=== PATIENT | female | born 1955 | race Caucasian/White ===

== ENCOUNTER → 2016-12-16 | Outpatient (CLI) | payer OTHER ==
[~2016-12-16] MED LIST: ADVAIR 250/501 DISK IH; ASCORBIC ACID500 M3 PO; B COMPLETE1 EACH PO; BUSPAR10 MG PO; CARBAMAZEPINE200 MG PO; CLARITIN10 M3 PO; CLONAZEPAM0.5 MG PO; CYMBALTA60 MG PO; DICYCLOMINE HCL10 MG PO; DITROPAN XL10 MG PO; FISH OIL 1,0001 EAC7 PO; FLAGYL500 MG PO; FLOVENT 11120 INHALA IH; FLUTICASONE PRO16 GM BOTH NARES; HYOPHEN TABLET1 EACH PO; HYOSCYAMINE0.375 M4 PO; LEVBID0.375 MG PO; LORATADINE10 M2 PO; LYRICA50 MG PO; MAGNESIUM250 MG PO; METRONIDAZOLE500 MG PO; MOBIC15 MG PO; OMEPRAZOLE20 M2 PO; POTASSIUM CHLO20 ME1 PO; PRILOSEC20 MG PO; PROAIR HFA8.5 GM IH; PriLOSEC PO; ROBAXIN750 MG PO; TEGRETOL200 MG PO; TESSALON PERLE100 MG PO; TIAZAC180 MG PO; TRAMADOL HCL50 MG PO; TRAZODONE HCL150 MG PO; TYLENOL ARTHRI650 MG PO; ULTRAM50 MG PO; VENTOLIN HFA18 GM IH; VESICARE10 MG PO; VITAMIN D31000 UNI2 PO; WELLBUTRIN XL150 MG PO; ZANAFLEX4 M1 PO; ZANAFLEX4 MG PO; ZANTAC300 MG PO
== END | disposition home or self-care (01) ==
LOC: CDC 11:45
DX: R94.31 Abnormal electrocardiogram [ECG] [EKG] (principal); K63.1 Perforation of intestine (nontraumatic)
CPT/HCPCS: 93000

== ENCOUNTER 2016-12-22 08:12 | Inpatient (IN) | payer OTHER ==
[~2016-12-22] VITALS: Ht 162.6 cm; Wt 88.5 kg
[2016-12-22 09:15] VITALS: BP 126/72
[2016-12-22 20:25] VITALS: BP 104/57
[2016-12-22 23:13] VITALS: BP 109/60
[2016-12-23 04:42] VITALS: BP 107/63
[2016-12-23 07:57] VITALS: BP 90/56
[2016-12-23 08:29] VITALS: BP 100/59
[2016-12-23 12:00] VITALS: BP 97/61
[2016-12-23 15:00] LABS: EOSINOPHIL (%) 1.4 % (0-5); EOSINOPHIL COUNT 0.1 K/uL (0-0.3); HEMATOCRIT 38.4 % (36.0-46.0); IMMATURE GRANULOCYTE (%) 0.2 % (0.0-0.7); INSTRUMENT ABS NEUTROPHIL CT 7.7 K/uL; LYMPHOCYTE COUNT 0.8 K/uL (1.0-2.8); MCH 29.3 PG (29.0-34.0); MCHC 31.8 G/DL (30.0-36.0); MCV 92.3 FL (83-99); MEAN PLAT.VOLUME 9.5 uM^3 (9.5-12.4); MONOCYTE (%) 5.7 % (3-12); MONOCYTE COUNT 0.5 K/uL (0-0.8); NEUTROPHIL (%) 83.5 % (45-76); NEUTROPHIL COUNT 7.7 K/uL (1.8-6.4); PLATELET COUNT 158 K/uL (156-360); RBC DIS.WIDTH-CV 12.6 % (11.8-14.6); RBC DIS.WIDTH-SD 42.5 % (39-53); RED BLOOD COUNT 4.16 M/uL (3.80-5.20)
[2016-12-23 15:12] LABS: ANION GAP 4 MEQ/L (2-14); CHLORIDE 103 MEQ/L (99-109); MAGNESIUM 1.7 mg/dl (1.3-2.7); POTASSIUM 3.9 MEQ/L (3.7-5.4); SAMPLE HEMOLYSIS CHECK 0; SAMPLE ICTERIC CHECK 0; SAMPLE LIPEMIA CHECK 0; SODIUM 139 MEQ/L (136-147); TOTAL BILIRUBIN 0.5 MG/DL (0.0-1.0)
[2016-12-23 15:16] LABS: WHITE BLOOD COUNT 9.3 K/uL (4.1-10.2)
[2016-12-23 15:18] LABS: ALKALINE PHOSPHATASE 64 IU/L (3-129); GFR ESTIMATE (CALCULATED) > 59 mL/min/; GLUCOSE 99 mg/dL (70-99); UREA NITROGEN (BUN) 5 mg/dL (9-23)
[2016-12-23 17:09] VITALS: BP 113/63
[2016-12-23 19:20] VITALS: BP 116/57
[2016-12-24] VITALS (7 sets, daily range): BP systolic 95–139; BP diastolic 51–81
[2016-12-24 12:04] LABS: ANION GAP 5 MEQ/L (2-14); CHLORIDE 101 MEQ/L (99-109); GFR ESTIMATE (CALCULATED) > 59 mL/min/; GLUCOSE 125 mg/dL (70-99); MAGNESIUM 1.7 mg/dl (1.3-2.7); POTASSIUM 3.8 MEQ/L (3.7-5.4); SAMPLE HEMOLYSIS CHECK 0; SAMPLE ICTERIC CHECK 0; SAMPLE LIPEMIA CHECK 0; SODIUM 136 MEQ/L (136-147); UREA NITROGEN (BUN) 6 mg/dL (9-23)
[2016-12-24 12:48] LABS: HEMATOCRIT 34.3 % (36.0-46.0); MCH 29.8 PG (29.0-34.0); MCHC 32.4 G/DL (30.0-36.0); MCV 92.2 FL (83-99); PLATELET COUNT 148 K/uL (156-360); RBC DIS.WIDTH-CV 12.5 % (11.8-14.6); RBC DIS.WIDTH-SD 42.5 % (39-53); RED BLOOD COUNT 3.72 M/uL (3.80-5.20); WHITE BLOOD COUNT 8.8 K/uL (4.1-10.2)
[2016-12-25 03:38] VITALS: BP 118/66
[2016-12-25 06:25] LABS: HEMATOCRIT 34.9 % (36.0-46.0); MCH 29.3 PG (29.0-34.0); MCHC 32.1 G/DL (30.0-36.0); MCV 91.4 FL (83-99); MEAN PLAT.VOLUME 9.6 uM^3 (9.5-12.4); PLATELET COUNT 157 K/uL (156-360); RBC DIS.WIDTH-CV 12.3 % (11.8-14.6); RBC DIS.WIDTH-SD 41.1 % (39-53); RED BLOOD COUNT 3.82 M/uL (3.80-5.20); WHITE BLOOD COUNT 8.1 K/uL (4.1-10.2)
[2016-12-25 07:03] VITALS: BP 114/69
[2016-12-25 09:41] LABS: CHLORIDE 102 mEq/L (99-109); POTASSIUM 4.1 mEq/L (3.7-5.4); SODIUM 137 mEq/L (136-147)
[2016-12-25 09:42] LABS: MAGNESIUM 1.9 mg/dL (1.3-2.7)
[2016-12-25 09:43] LABS: GLUCOSE 115 mg/dL (70-99)
[2016-12-25 09:45] LABS: ANION GAP 10 MEQ/L (2-14)
[2016-12-25 09:47] LABS: GFR ESTIMATE (CALCULATED) > 59 mL/min/
[2016-12-25 09:48] LABS: UREA NITROGEN (BUN) 5 mg/dL (9-23)
[2016-12-25 10:58] VITALS: BP 118/75
[2016-12-25 15:23] VITALS: BP 121/76
[2016-12-25 19:02] VITALS: BP 118/75
[2016-12-25 22:45] VITALS: BP 97/55
[2016-12-26] VITALS (7 sets, daily range): BP systolic 100–142; BP diastolic 7–86
[2016-12-27 03:21] VITALS: BP 103/64
[2016-12-27 09:02] VITALS: BP 11/68
[2016-12-27] MEDS ORDERED: ULTRAM50 MG PO (13:13)
== END 2016-12-27 16:01 | disposition home health service (06) | DRG 330 ==
LOC: 2SOUTH → 5EAST 08:27 → 2SOUTH 09:24 → 5EAST 20:23
PROVIDERS: Surgery
DX: Z43.3 Encounter for attention to colostomy (principal); K66.0 Peritoneal adhesions (postprocedural) (postinfection); K43.5 Parastomal hernia without obstruction or gangrene; J98.11 Atelectasis; R09.02 Hypoxemia; K21.9 Gastro-esophageal reflux disease without esophagitis; F31.9 Bipolar disorder, unspecified; F41.9 Anxiety disorder, unspecified; J45.909 Unspecified asthma, uncomplicated; R13.10 Dysphagia, unspecified; M79.7 Fibromyalgia; G62.9 Polyneuropathy, unspecified; K58.9 Irritable bowel syndrome, unspecified; M19.90 Unspecified osteoarthritis, unspecified site; E66.9 Obesity, unspecified; R32 Unspecified urinary incontinence; N81.10 Cystocele, unspecified; Z68.35 Body mass index [BMI] 35.0-35.9, adult; G47.33 Obstructive sleep apnea (adult) (pediatric); I10 Essential (primary) hypertension
CPT/HCPCS: 71010; 80048; 80053; 83735; 84100; 85025; 85027; 88302; 94640; 94640 76; 94660; 94667; 94668; 94760; 94799; 99202; C1781; J0131; J0330; J1100; J1170; J1580; J1650; J2175; J2250; J2405; J2710; J3010; J7120; S0030

== ENCOUNTER 2017-04-06 09:22 | Day surgery (SDC) | payer OTHER ==
[~2017-04-06] VITALS: Ht 157.5 cm; Wt 85.3 kg
[~2017-04-06 09:22] MED LIST changes: +ALLERGY RELIE15.8 ML BOTH NARES; +DESYREL 150 MG150 MG PO; +ZANAFLEX2 M1 PO
== END 2017-04-06 11:08 | disposition home or self-care (01) ==
LOC: PAIN 09:22 → SDC 10:30 → PAIN 11:08
DX: M50.123 Cervical disc disorder at C6-C7 level with radiculopathy (principal); M47.22 Other spondylosis with radiculopathy, cervical region; J45.909 Unspecified asthma, uncomplicated; K21.9 Gastro-esophageal reflux disease without esophagitis; I10 Essential (primary) hypertension; G60.9 Hereditary and idiopathic neuropathy, unspecified; E66.9 Obesity, unspecified; G47.30 Sleep apnea, unspecified
CPT/HCPCS: J1030

== ENCOUNTER → 2017-05-04 | Day surgery (SDC) | payer OTHER ==
[~2017-05-04] VITALS: Ht 157.5 cm; Wt 85.3 kg
[~2017-05-04] MED LIST changes: +LITHIUM CARBON450 MG PO
== END | disposition home or self-care (01) ==
LOC: PAIN 09:46 → SDC 10:15 → PAIN 10:15
DX: M50.13 Cervical disc disorder with radiculopathy, cervicothoracic region (principal); M47.22 Other spondylosis with radiculopathy, cervical region; M79.1 Myalgia; M79.7 Fibromyalgia; J45.909 Unspecified asthma, uncomplicated; K21.9 Gastro-esophageal reflux disease without esophagitis; I10 Essential (primary) hypertension; E66.9 Obesity, unspecified; Z68.34 Body mass index [BMI] 34.0-34.9, adult; G47.30 Sleep apnea, unspecified; Z79.891 Long term (current) use of opiate analgesic
CPT/HCPCS: J1030; J2250; J3010

== ENCOUNTER 2017-12-11 07:41 | Day surgery (SDC) | payer OTHER ==
[~2017-12-11] VITALS: Ht 157.5 cm; Wt 95.3 kg
[~2017-12-11 07:41] MED LIST changes: +CONCERTA27 MG PO; +LO-DOSE ASPIRIN81 M1 PO
[2017-12-14] MEDS ORDERED: LIORESAL10 MG PO (14:12)
== END 2017-12-11 09:30 | disposition home or self-care (01) ==
LOC: PAIN 07:41 → SDC 08:15 → PAIN 08:15
DX: M47.812 Spondylosis without myelopathy or radiculopathy, cervical region (principal); M46.92 Unspecified inflammatory spondylopathy, cervical region; M54.12 Radiculopathy, cervical region; M79.1 Myalgia; K21.9 Gastro-esophageal reflux disease without esophagitis; J45.909 Unspecified asthma, uncomplicated; K22.4 Dyskinesia of esophagus; I10 Essential (primary) hypertension; G60.9 Hereditary and idiopathic neuropathy, unspecified; E66.9 Obesity, unspecified; Z68.36 Body mass index [BMI] 36.0-36.9, adult; K58.9 Irritable bowel syndrome, unspecified; M19.90 Unspecified osteoarthritis, unspecified site; G47.30 Sleep apnea, unspecified; Z79.82 Long term (current) use of aspirin; Z88.8 Allergy status to other drugs, medicaments and biological substances
CPT/HCPCS: J1030; J2250; S0020

== ENCOUNTER 2017-12-18 07:45 | Day surgery (SDC) | payer OTHER ==
[~2017-12-18] VITALS: Ht 157.5 cm; Wt 92.5 kg
[~2017-12-18 07:45] MED LIST changes: +LIORESAL10 MG PO
== END 2017-12-18 10:26 | disposition home or self-care (01) ==
LOC: PAIN 07:45 → SDC 10:15 → PAIN 10:15
DX: M47.812 Spondylosis without myelopathy or radiculopathy, cervical region (principal); M46.92 Unspecified inflammatory spondylopathy, cervical region; M54.12 Radiculopathy, cervical region; M79.1 Myalgia; K21.9 Gastro-esophageal reflux disease without esophagitis; J45.909 Unspecified asthma, uncomplicated; F31.9 Bipolar disorder, unspecified; I10 Essential (primary) hypertension; G60.9 Hereditary and idiopathic neuropathy, unspecified; E66.9 Obesity, unspecified; Z68.36 Body mass index [BMI] 36.0-36.9, adult; M19.90 Unspecified osteoarthritis, unspecified site; G47.30 Sleep apnea, unspecified; Z88.8 Allergy status to other drugs, medicaments and biological substances
CPT/HCPCS: J1030; J2250; S0020

== ENCOUNTER 2018-02-20 07:17 | Day surgery (SDC) | payer OTHER ==
[~2018-02-20] VITALS: Ht 157.5 cm; Wt 92.5 kg
== END 2018-02-20 09:07 | disposition home or self-care (01) ==
LOC: PAIN 07:17 → SDC 07:45 → PAIN 07:45
PROC: BR141ZZ Fluoroscopy of Cervical Facet Joint(s) using Low Osmolar Contrast (ICD-10-PCS; principal; 2018-02-20)
PROC: 3E0T3TZ Introduction of Destructive Agent into Peripheral Nerves and Plexi, Percutaneous Approach (ICD-10-PCS; principal; 2018-02-20)
DX: M47.812 Spondylosis without myelopathy or radiculopathy, cervical region (principal); M54.12 Radiculopathy, cervical region; M79.7 Fibromyalgia; K21.9 Gastro-esophageal reflux disease without esophagitis; I10 Essential (primary) hypertension; J44.9 Chronic obstructive pulmonary disease, unspecified; G60.9 Hereditary and idiopathic neuropathy, unspecified; E66.9 Obesity, unspecified; Z68.37 Body mass index [BMI] 37.0-37.9, adult; Z79.82 Long term (current) use of aspirin; Z79.891 Long term (current) use of opiate analgesic; Z88.2 Allergy status to sulfonamides; Z88.1 Allergy status to other antibiotic agents; Z88.9 Allergy status to unspecified drugs, medicaments and biological substances
CPT/HCPCS: J1030; J2250; S0020

== ENCOUNTER 2018-02-27 07:04 | Day surgery (SDC) | payer OTHER ==
[~2018-02-27] VITALS: Ht 157.5 cm; Wt 92.5 kg
== END 2018-02-27 09:00 | disposition home or self-care (01) ==
LOC: PAIN 07:04 → SDC 07:30 → PAIN 09:00
DX: M47.812 Spondylosis without myelopathy or radiculopathy, cervical region (principal); M54.12 Radiculopathy, cervical region; M79.7 Fibromyalgia; K21.9 Gastro-esophageal reflux disease without esophagitis; J44.9 Chronic obstructive pulmonary disease, unspecified; I10 Essential (primary) hypertension; G47.30 Sleep apnea, unspecified; Z79.82 Long term (current) use of aspirin; Z88.8 Allergy status to other drugs, medicaments and biological substances; E66.9 Obesity, unspecified; Z68.37 Body mass index [BMI] 37.0-37.9, adult
CPT/HCPCS: J1030; J2250; S0020

== ENCOUNTER 2018-04-09 09:58 | Day surgery (SDC) | payer OTHER ==
[~2018-04-09] VITALS: Ht 158.8 cm; Wt 88.9 kg
== END 2018-04-09 12:57 | disposition home or self-care (01) ==
LOC: PAIN 09:58 → SDC 11:15 → PAIN 11:15
PROC: 3E0T3TZ Introduction of Destructive Agent into Peripheral Nerves and Plexi, Percutaneous Approach (ICD-10-PCS; principal; 2018-04-09)
PROC: BR141ZZ Fluoroscopy of Cervical Facet Joint(s) using Low Osmolar Contrast (ICD-10-PCS; principal; 2018-04-09)
DX: M47.812 Spondylosis without myelopathy or radiculopathy, cervical region (principal); M79.1 Myalgia; M54.12 Radiculopathy, cervical region; Z88.8 Allergy status to other drugs, medicaments and biological substances
CPT/HCPCS: J1030; J2250; S0020